=== PATIENT | female | born 2005 | race Two or more races ===

== ENCOUNTER 2025-08-21 12:17 | Emergency (ER) | payer OTHER ==
[~2025-08-21] VITALS: Ht 152.4 cm; Wt 63.5 kg
[2025-08-21] MEDS ORDERED: KETOROLAC TROMETHAMINE 60 MG VIAL IM ONE ×2 (14:00→15:03)
[2025-08-21] MEDS ORDERED: ACETAMINOPHEN 500 MG GEL..CAP PO ONE ×2 (14:00→15:03)
[2025-08-21 16:01] LABS: BASO % 0.5 % (0.1-1.2); EOS # 0.06 (0.04-0.54); EOS % 0.6 % (0.7-7.0); LYMPH # 1.83 (1.18-3.74); LYMPH % 17.1 % (19.3-53.1); MEAN PLATELET VOLUME 9.30 fl (9.4-12.4); MONO # 0.65 (0.24-0.82); MONO % 6.1 % (4.7-12.5); NEUT # 8.09 (1.56-6.13); NEUT % 75.3 % (34.0-71.1); RED CELL DISTRIBUTION WIDTH 12.7 % (11.6-14.4)
[2025-08-21 16:33] LABS: ALT/SGPT 17 U/L (12-78); AST/SGOT 12 U/L (15-37); BILIRUBIN TOTAL 0.65 mg/dL (0.3-1.2); BUN CREA RATIO 14 (7.0-25.0); CREATININE SERUM 0.83 mg/dL (0.55-1.02); GFR 87.64; GLOBULINA 2.9 G/DL (2.4-3.5); GLUCOSE FASTING 130 mg/dL (65-100); HCG QUANTITATIVE < 1 mUI/mL (1-3); OSMOLALITY SERUM 286 MOSM/KG (275-295)
[2025-08-21 16:59] LABS: URINE APPEARANCE Clear; URINE BILIRRUBIN Negative (NEGATIVE); URINE BLOOD Large; URINE COLOR Yellow; URINE GLUCOSE Negative (NEGATIVE); URINE KETONE Negative (NEGATIVE); URINE LEUKOCYTE Negative; URINE NITRATE Negative; URINE PROTEIN Negative (NEGATIVE); URINE UROBILINOGEN 1.0 E.U./dl
[2025-08-21 17:03] LABS: URINE BACTERIA 481.1 uL (0.0-1933); URINE EPITHELIAL CELLS 17.0 uL (0.0-38.8); URINE RBC 32.8 uL (0.0-20.8); URINE WBC 31.5 uL (0.0-23.2)
[2025-08-21 17:17] LABS: URINE CAST 0.29 uL (0.0-1.40)
[2025-08-21] MEDS ORDERED: IBU600 MG PO (17:58)
[2025-08-21] MEDS ORDERED: PEPCID AC20 MG PO (17:58)
== END 2025-08-21 18:38 | disposition home or self-care (01) ==
LOC: ER 12:17
PROVIDERS: General Practice
DX: R10.20 Pelvic and perineal pain unspecified side (principal)